=== PATIENT | female | born 1945 ===

== ENCOUNTER 2017-01-20 08:44 | Day surgery (SDC) | payer MEDICARE, MEDICAID ==
[2017-01-20 10:20] VITALS: BMI 28.9
[2017-01-20] MEDS ORDERED: Lactated Ringer's 500 ML IV SCH (10:45)
[2017-01-20] MEDS ORDERED: Lactated Ringer's 500 ML IV ONE ×2 (10:53)
--- NOTE | 2017-01-20 10:53 | CP.SDSHP ---
Same Day Surgery H & P - History Proposed Procedure: COLONSCOPY Pre-Op Diagnosis: SEE NOTES - Previous Medical/Surgical History Cardiac: Hypertension, ASHD/CAD Misc: Other Pain: 2.Mild Pain - Allergies Allergies: Allergies No Known Allergies Allergy (Verified 01/20/17 10:20) - Physical Exam General Appearance: N Vital Signs: Vital Signs 01/20/17 10:35 Temperature 98 F Pulse Rate 50 L Respiratory 18 Rate Blood Pressure 159/65 H O2 Sat by Pulse 98 Oximetry Mental Status: Alert & Oriented x3 Neuro: WNL Heart: Other Lungs: WNL GI: WNL - {Optional Preform as Required} Breast: WNL Abdomen: Other Rectal: WNL Integument: WNL : WNL Ortho: WNL ENT: WNL - Impression Pt. Evaluated Today:Candidate for Anesthesia & Procedure: Yes - Date & Time Time: 10:52 Short Stay Discharge - Short Stay Discharge Admitting Diagnosis/Reason for Visit: SCREENING / CHANGE IN BOWEL HABIT Disposition: HOME/ ROUTINE
[2017-01-20] MEDS ORDERED: Belladonna-Phenobarbital PO STA (10:54)
[2017-01-20] MEDS ORDERED: Propofol 10 mg/ml Inj (20 ML) ONE (10:54)
[2017-01-20 13:20] VITALS: TEMP 98
[2017-01-20 13:23] VITALS: PULSE 53; RESP 14
[2017-01-20 13:26] VITALS: BP 119/65; O2SAT 99
== END 2017-01-20 12:05 | disposition home or self-care (01) ==
LOC: C.ENDO 08:44
PROVIDERS: ATTEND Specialist
DX: K52.9 Noninfective gastroenteritis and colitis, unspecified (principal); K57.30 Diverticulosis of large intestine without perforation or abscess without bleeding; K64.8 Other hemorrhoids
CPT/HCPCS: 45380; 88305; J2704; J7120

== ENCOUNTER 2017-04-07 06:56 | Day surgery (SDC) | payer MEDICARE, OTHER ==
[2017-04-07 07:22] VITALS: BMI 27.4
[2017-04-07 07:24] VITALS: O2SAT 100
[2017-04-07] MEDS ORDERED: Propofol 10 mg/ml Inj (20 ML) ONE (08:40)
--- NOTE | 2017-04-07 08:42 | CP.SDSHP ---
Same Day Surgery H & P - History Proposed Procedure: COLONSCOPY Pre-Op Diagnosis: SEE NOTES - Previous Medical/Surgical History Cardiac: Hypertension, ASHD/CAD Misc: Other Pain: 4.Moderate Pain - Allergies Allergies: Allergies No Known Allergies Allergy (Verified 04/07/17 07:22) - Physical Exam General Appearance: N Vital Signs: Vital Signs 04/07/17 04/07/17 07:23 07:37 Temperature 97.8 F 97.8 F Pulse Rate 62 62 Respiratory 19 19 Rate Blood Pressure 145/68 145/68 O2 Sat by Pulse 100 100 Oximetry Mental Status: Alert & Oriented x3 Neuro: WNL Heart: Other Lungs: WNL GI: WNL - {Optional Preform as Required} Breast: WNL Abdomen: Other Rectal: Other Integument: WNL : WNL Ortho: Other ENT: WNL - Impression Pt. Evaluated Today:Candidate for Anesthesia & Procedure: Yes - Date & Time Time: 08:42 Short Stay Discharge - Short Stay Discharge Admitting Diagnosis/Reason for Visit: CHANGE IN BOWEL HABIT Disposition: HOME/ ROUTINE
[2017-04-07] MEDS ORDERED: Lactated Ringer's 500 ML IV ONE ×2 (08:43)
[2017-04-07 09:06] VITALS: TEMP 96.8
[2017-04-07] MEDS ORDERED: Belladonna-Phenobarbital PO ONE (09:15)
[2017-04-07 09:43] VITALS: PULSE 53; RESP 12
[2017-04-07 09:47] VITALS: BP 140/64
== END 2017-04-07 10:47 | disposition home or self-care (01) ==
LOC: C.ENDO 06:56
PROVIDERS: ATTEND Specialist
DX: K63.89 Other specified diseases of intestine (principal); K58.9 Irritable bowel syndrome, unspecified; K64.8 Other hemorrhoids; R19.4 Change in bowel habit
CPT/HCPCS: 45380; 88305; J2704; J7120

== ENCOUNTER 2018-12-08 17:55 | Observation (INO) | payer MEDICARE, OTHER ==
[2018-12-08 17:56] VITALS: BMI 27.4
[2018-12-08] MEDS ORDERED: Sodium Chloride 0.9% 1,000 ML IV ONE (18:43)
[2018-12-08] MEDS ORDERED: Sodium Chloride 0.9% 1,000 ML ONE (19:03)
[2018-12-08 19:17] LABS: BASO # 0.1 K/uL (0.0-0.2); EOS # 0.1 K/uL (0.0-0.7); EOS % 1.2 % (0.0-4.0); HEMOGLOBIN 12.3 g/dL (11.0-16.0); LYMPH # 1.1 K/uL (1.0-4.3); LYMPH % 16.6 % (20.0-40.0); MEAN CELL VOLUME 84.9 fL (81.0-99.0); MEAN CORPUSCULAR HEMOGLOBIN 27.6 pg (27.0-31.0); MEAN CORPUSCULAR HGB CONC 32.4 g/dL (33.0-37.0); MEAN PLATELET VOLUME 9.6 fL (7.2-11.7); MONO # 0.4 K/uL (0.0-0.8); MONO % 6.6 % (0.0-10.0); NEUT % 74.6 % (50.0-75.0); RBC 4.46 Mil/uL (3.80-5.20); RED CELL DISTRIBUTION WIDTH 14.6 % (11.5-14.5); WHITE BLOOD COUNT 6.7 K/uL (4.8-10.8)
[2018-12-08 19:22] LABS: SQUAMOUS EPITHIAL < 1 /hpf (0-5); URINE BILIRUBIN NEGATIVE (NEGATIVE); URINE BLOOD NEGATIVE (NEGATIVE); URINE CLARITY Clear (Clear); URINE COLOR Yellow (YELLOW); URINE GLUCOSE (UA) NORMAL (Normal); URINE LEUKOCYTE ESTERASE NEG Leu/uL (Negative); URINE PROTEIN NEGATIVE (NEGATIVE); URINE UROBILINOGEN NORMAL mg/dL (0.2-1.0)
--- NOTE | 2018-12-08 19:23 | C.PDOC ---
History Of Present Illness 73 year old female present to ED with complaint of cough, congestion and body aches that started 2 weeks ago. Patient states that she went to see Dr Adams and was put on tamiflu and zithromax. Patient states that she developed dizzi ness, nausea, vomiting, and mild diarrhea soon after starting her medication. Patient states that she continues to have an upset stomach and has not been able to eat or drink. She states that she began to feel worse and 2-3 days after stopped her medication. She states that her fever and body aches are gone, but she still feels chest congestion, dry cough, dizziness, and lightheadedness. Patient denies abdominal pain, hematuria, bloody stools, and dysuria. Time Seen by Provider: 12/08/18 18:32 Chief Complaint (Nursing): Abdominal Pain History Per: Patient History/Exam Limitations: no limitations Onset/Duration Of Symptoms: Other (2-3 weeks) Current Symptoms Are (Timing): Still Present Associated Symptoms: Other (dry cough, lightheadedness, dizziness). denies: Fever, Urinary Symptoms Exacerbating Factors: None Alleviating Factors: None Past Medical History Reviewed: Historical Data, Nursing Documentation, Vital Signs Vital Signs: Last Vital Signs Temp 97.6 F 12/08/18 18:09 Pulse 118 H 12/08/18 18:09 Resp 20 12/08/18 18:09 BP 153/89 H 12/08/18 18:09 Pulse Ox 98 12/08/18 18:09 - Medical History PMH: Arthritis, Fractures (BOTH FEET), HTN Denies: Chronic Kidney Disease Surgical History: Endoscopy Family History: States: Unknown Family Hx - Social History Hx Alcohol Use: No Hx Substance Use: No - Immunization History Hx Tetanus Toxoid Vaccination: No Hx Influenza Vaccination: No Hx Pneumococcal Vaccination: No Review Of Systems Constitutional: Negative for: Fever, Malaise Cardiovascular: Positive for: Light Headedness, Other (chest congestion) Respiratory: Positive for: Cough. Negative for: Sputum Gastrointestinal: Positive for: Nausea, Vomiting, Diarrhea. Negative for: Hematochezia Genitourinary: Negative for: Dysuria, Hematuria Neurological: Positive for: Dizziness. Negative for: Weakness, Numbness Physical Exam - Physical Exam Appears: Non-toxic, No Acute Distress, Other (dehydrated) Skin: Normal Color, Warm, Dry Head: Atraumatic, Normacephalic Oral Mucosa: Dry Neck: Normal ROM, Supple Chest: Symmetrical, No Deformity Respiratory: Rales (mild, bilateral ), Rhonchi (mild,bilateral) Gastrointestinal/Abdominal: Soft, No Tenderness, No Guarding, No Rebound Extremity: Capillary Refill (<2 seconds) Pulses: Left Radial: Normal, Right Radial: Normal Neurological/Psych: Oriented x3, Normal Speech, Normal Cognition ED Course And Treatment - Laboratory Results Result Diagrams: 12/08/18 19:05 12/08/18 19:05 Lab Interpretation: No Acute Changes ECG: Interpreted By Me ECG Rhythm: Atrial Fibrillation (new onset with rapid ventricular response) ECG Interpretation: Abnormal O2 Sat by Pulse Oximetry: 98 (in RA) Pulse Ox Interpretation: Normal - Radiology CXR: Interpreted by Me CXR Interpretation: Yes: No Acute Disease Progress Note: Patient treated with IV fluids in ED. 8:20 States she is still feeling dizzy with palpitations but is hungry and is requesting something to eat. EKG ordered. Reevaluation Time: 20:15 - Physician Consult Information Time Consulting Physician Contacted: 21:38 Physician Contacted: Jd Adams Outcome Of Conversation: Patient to be admitted for cardiac evaluation Medical Decision Making Medical Decision Making: Impression: 73 year old female present to ED with complait of cough, congestion and body aches that started 2 weeks ago Plan: Labs ordered with CMP,CBC, and UA CXR ordered for patient Patient given IV fluids Disposition - Disposition Disposition: HOSPITALIZED Disposition Time: 21:38 Condition: FAIR - POA Present On Arrival: None - Clinical Impression Clinical Impression: New onset atrial fibrillation - Scribe Statement The provider has reviewed the documentation as recorded by the Scribe (Sarai Nunn) All medical record entries made by the Scribe were at my direction and personally dictated by me. I have reviewed the chart and agree that the record accurately reflects my personal performance of the history, physical exam, medical decision making, and the department course for this patient. I have also personally directed, reviewed, and agree with the discharge instructions and disposition.
[2018-12-08 19:47] LABS: ALB/GLOB RATIO 1.1 (1.0-2.1); ALBUMIN 4.2 g/dL (3.5-5.0); ALT/SGPT 29 U/L (9-52); AST/SGOT 54 U/L (14-36); BLOOD UREA NITROGEN 16 mg/dL (7-17); CALCIUM 9.3 mg/dl (8.6-10.4); GFR NON-AFRICAN AMERICAN > 60
[2018-12-08] MEDS ORDERED: Enoxaparin 30 mg Syringe ONE (22:13)
[2018-12-08] MEDS: Enoxaparin 60 mg Syringe SC SCH (22:16)
[2018-12-08 22:32] LABS: CK-MB 4.72 ng/mL (0.0-3.38)
[2018-12-09 06:39] LABS: CK-MB 3.04 ng/mL (0.0-3.38)
[2018-12-09] MEDS: Enoxaparin 60 mg Syringe SC SCH (09:26)
--- NOTE | 2018-12-09 09:37 | RAD ---
Date of service: 12/08/2018 HISTORY: Shortness of breath COMPARISON: No prior. TECHNIQUE: Chest PA and lateral FINDINGS: LINES AND TUBES: None. LUNG AND PLEURA: The lungs are hyperinflated and there is peribronchial thickening with chronic changes in both lungs. No pleural effusion or pneumothorax. HEART AND MEDIASTINUM: There is mild cardiomegaly. There are aortic atherosclerotic calcifications present. The hilar and mediastinal contours are within normal limits. SKELETAL STRUCTURES: The bony structures are within normal limits for the patient's age. VISUALIZED UPPER ABDOMEN: Normal. OTHER FINDINGS: None. IMPRESSION: No active pulmonary disease. COPD.
--- NOTE | 2018-12-09 10:42 | CP.PCM.PN ---
Subjective - Date & Time of Evaluation Date of Evaluation: 12/09/18 Time of Evaluation: 10:41 - Subjective Subjective: PGY3 progress note for Dr. Adams 73 year old female with past medical history of is admitted for dizziness 2/2 a fib. 2 weeks ago, patient developed flu like symptoms for which she was treated by her PMD, Dr. Adams with Tamiflu and zithromax. Patient developed dizziness, N/V and mild diarrhea after starting the medications. Patient then discontinued the medications but continued to feel worse which brought her to hospital. Clementine ent was noted to have new onset a fib in ED. Currently, pt states dizziness has improved. Denies having any SOB, abd pain, N/v/D/c, F/C, palpitaitons, CP. Objective - Vital Signs/Intake and Output Vital Signs (last 24 hours): Temp Pulse Resp BP Pulse Ox 97.4 F L 78 18 115/76 98 12/09/18 08:00 12/09/18 08:00 12/09/18 08:00 12/09/18 08:00 12/09/18 08:00 - Medications Medications: Current Medications Diltiazem HCl (Cardizem) 30 mg PO Q12 [facility] Last Admin: 12/09/18 09:26 Dose: 30 mg Enoxaparin Sodium (Lovenox) 60 mg SC Q12 [facility] Last Admin: 12/09/18 09:26 Dose: 60 mg - Labs Labs: 12/08/18 19:05 12/08/18 19:05 - Constitutional Appears: Non-toxic, No Acute Distress - Head Exam Head Exam: ATRAUMATIC, NORMOCEPHALIC - ENT Exam ENT Exam: Mucous Membranes Moist - Respiratory Exam Respiratory Exam: Clear to Ausculation Bilateral. absent: Rales, Rhonchi, Wheezes - Cardiovascular Exam Cardiovascular Exam: REGULAR RHYTHM, +S1, +S2 - GI/Abdominal Exam GI & Abdominal Exam: Soft, Normal Bowel Sounds. absent: Distended, Firm, Guarding, Rigid, Tenderness - Extremities Exam Extremities Exam: absent: Pedal Edema, Tenderness - Neurological Exam Neurological Exam: Alert, Awake, Oriented x3 - Psychiatric Exam Psychiatric exam: Normal Affect, Normal Mood - Skin Skin Exam: Dry, Intact, Normal Color, Warm Assessment and Plan - Assessment and Plan (Free Text) Assessment: 73 year old female is admitted for a fib. EKG done in ED showed A fib with HR of 108. A fib - CHADsVASc score of 3. Patient will require alf anticoagulation - Likely new onset - Patient started on Cardizem 30 mg po Q12 - Will check echo, ЕЛЕНА, TSH - pt on lovenox 70 mg sc q12 Chest congestion likely 2/2 bronchitis - afebrile on admission and normal WBC count - Will check procal, blood cultures and MRSA Prophylaxis - Lovenox - SCDs Case discussed with attending, Dr. Adams
--- NOTE | 2018-12-09 12:44 | CARD ---
APPROVED REPORT Date of service: 12/08/2018 EKG Measurement Heart [id number] <Conclusion> Atrial fibrillation with rapid ventricular response Abnormal ECG
--- NOTE | 2018-12-09 14:35 | CP.PCM.CON ---
History of Present Illness - History of Present Illness History of Present Illness: ASKED TO SEE PT BY DR GAY IN CARDIOLOGY COVERAGE. 73 YO FEMALE WITH 3 WEEKS OF PALPITATIONS, DIZZINESS AND QUIROZ. PT ADMITS TO PREVIOUS SYMPTOMS FOR YEARS. THESE OCCURRED INFREQUENTLY AND LASTED SEVERAL HOURS. THE PAST THREE WEEKS HER SYMPTOMS HAVE BEEN CONSTANT. DENIES CP, SYNCOPE, ORTHOPNEA, PND. DENIES PRIOR DIAGNOSIS OF HEART DISEASE. NO PRIOR HX OF FALLING OR RECENT BLEEDS. Review of Systems - Constitutional Constitutional: As Per HPI, Headache, Lethargy. absent: Anorexia, Chills, Daytime Sleepiness, Excessive Sweating, Fatigue, Fever, Frequent Falls, Increased Appetite, Malaise, Night Sweats, Snoring, Sleep Apnea, Weight Gain, Weight Loss, Weakness, Other - EENT Eyes: As Per HPI. absent: Blind Spots, Blurred Vision, Change in Vision, Decreased Night Vision, Diplopia, Discharge, Dry Eye, Exophthalmos, Floaters, Irritation, Itchy Eyes, Loss of Peripheral Vision, Pain, Photophobia, Requires Corrective Lenses, Sees Flashes, Spots in Vision, Tunnel Vision, Other Visual Disturbances, Loss of Vision, Other Ears: As Per HPI. absent: Decreased Hearing, Ear Discharge, Ear Pain, Tinnitus, Abnormal Hearing, Disequilibrium, Dizziness, Other Nose/Mouth/Throat: As Per HPI. absent: Epistaxis, Nasal Congestion, Nasal Discharge, Nasal Obstruction, Nasal Trauma, Nose Pain, Post Nasal Drip, Sinus Pain, Sinus Pressure, Bleeding Gums, Change in Voice, Dental Pain, Dry Mouth, Dysphagia, Halitosis, Hoarsness, Lip Swelling, Mouth Lesions, Mouth Pain, Odynop hagia, Sore Throat, Throat Swelling, Tongue Swelling, Facial Pain, Neck Pain, Neck Mass, Other - Breasts Breasts: As Per HPI. absent: Change in Shape, Mass, Pain, Nipple Discharge, Nipple Inversion, Skin Changes, Swelling, Other - Cardiovascular Cardiovascular: As Per HPI, Dyspnea, Irregular Heart Rhythm, Lightheadedness, Palpitations. absent: Acrocyanosis, Chest Pain, Chest Pain at Rest, Chest Pain with Activity, Claudication, Diaphoresis, Dyspnea on Exertion, Edema, Pain Radiating to Arm/Neck/Jaw, Leg Edema, Leg Ulcers, Orthopnea, Paroxysmal Nocturnal Dyspnea, Pedal Edema, Radiating Pain, Rapid Heart Rate, Slow Heart Rate, Syncope, Other - Respiratory Respiratory: As Per HPI. absent: Cough, Dyspnea, Hemoptysis, Dyspnea on Exertion, Wheezing, Snoring, Stridor, Pain on Inspiration, Chest Congestion, Excessive Mucous Production, Change in Mucous Color, Pain with Coughing, Other - Gastrointestinal Gastrointestinal: As Per HPI. absent: Abdominal Pain, Belching, Bloating, Change in Bowel Habits, Change in Stool Character, Coffee Ground Emesis, Constipation, Cramping, Diarrhea, Dyspepsia, Dysphagia, Early Satiety, Excessive Flatus, Fecal Incontinence, Heartburn, Hematemesis, Hematochezia, Loose Stools, Melena, Nausea, Odynophagia, Temesmus, Vomiting, Other - Genitourinary Genitourinary: As Per HPI. absent: Change in Urinary Stream, Difficulty Urinating, Dysuria, Flank Pain, Hematuria, Pyuria, Nocturia, Urinary Incontinence, Urinary Frequency, Urinary Hesitance, Urinary Urgency, Voiding Freq/Small Amts, Freq UTI, Hx Renal/Bladder Calculi, Hx /Renal Surgery, Bladder Distension, Other - Reproductive: Female Reproductive:Female: As Per HPI. absent: Amenorrhea, Amenorrhea/ Control, Currently Menstual, Cycle <21 Days, Cycle >35 Days, Cycle Variable, Menses 1-7 Days, Menses >/= 8 Days, Menses Variable, Cycle > 4 Weeks Between, No Menses for 6 Months, Heavy Menses, Light Menses, Normal Menses, Spotting Between Cycles, S/P Hysterectomy, Menopausal, Post Menopausal, Premenarche, Abnormal Vaginal Bleeding, Dysmenorrhea, Dyspareunia, Genital Lesions, Genital Pruritis, Pelvic Pain, Prolapse Symptoms, Sexual Dysfunction, Vaginal Discharge, Vaginal Dryness, Vaginal Odor, Vaginal Pruritis, Other - Menstruation Menstruation: As Per HPI. absent: Amenorrhea, Amenorrhea/ Control, Currently Menstual, Cycle <21 Days, Cycle >35 Days, Cycle Variable, Menses 1-7 Days, Menses >/= 8 Days, Menses Variable, Cycle > 4 Weeks Between, No Menses for 6 Months, Heavy Menses, Light Menses, Normal Menses, Spotting Between Cycles, S/P Hysterectomy, Menopausal, Post Menopausal, Premenarche, Abnormal Vaginal Bleeding, Dysmenorrhea, Other - Musculoskeletal Musculoskeletal: As Per HPI. absent: Abnormal Gait, Arthralgias, Atrophy, Back Pain, Deformity, Joint Swelling, Limited Range of Motion, Loss of Height, Muscle Cramps, Muscle Weakness, Myalgias, Neck Pain, Numbness, Radiating Pain into Limb, Stiffness, Tingling, Other - Integumentary Integumentary: As Per HPI. absent: Acne, Alopecia, Bleeding Lesions, Change in Hair, Change in Nails, Change in Pigmentation, Changing Lesions, Dry Skin, Erythema, Furuncle, Hirsutism, Lesions, New Lesions, Non-Healing Lesions, Photosensitivity, Pruritus, Rash, Skin Pain, Skin Ulcer, Sores, Striae, Swelling, Unusual Bruising, Wounds, Jaundice, Other - Neurological Neurological: As Per HPI. absent: Abnormal Gait, Abnormal Hearing, Abnormal M ovements, Abnormal Speech, Behavioral Changes, Burning Sensations, Confusion, Convulsions, Disequilibrium, Dizziness, Numbness, Focal Weakness, Frequent Falls, Headaches, Lack of Coordination, Loss of Vision, Memory Loss, Paresthesias, Radicular Pain, Restless Legs, Sensory Deficit, Syncope, Tingling, Tremor, Vertigo, Weakness, Other Visual Disturbances, Other - Psychiatric Psychiatric: As Per HPI. absent: Abnormal Sleep Pattern, Anhedonia, Anxiety, Auditory Hallucinations, Behavioral Changes, Change in Appetite, Change in Libido, Confusion, Depression, Difficulty Concentrating, Hallucinations, Homicidal Ideation, Hopelessness, Irritability, Memory Loss, Mood Swings, Panic Attacks, Paranoia, Suicidal Ideation, Visual Hallucinations, Tactile Hallucina tions, Other - Endocrine Endocrine: As Per HPI. absent: Change in Body Appearance, Change in Libido, Cold Intolorance, Deepening of Voice, Excessive Sweating, Fatigue, Flushing, Heat Intolorance, Increase in Ring/Shoe/Hat Size, Palpitations, Polydipsia, Polyphagia, Polyuria, Other - Hematologic/Lymphatic Hematologic: As Per HPI. absent: Easy Bleeding, Easy Bruising, Lymphadenopathy, Other Past Patient History - Past Medical History & Family History Past Medical History?: Yes - Past Social History Smoking Status: Never Smoked Chewing Tobacco Use: No Cigar Use: No Alcohol: Occasional Drugs: Denies Home Situation {Lives}: Alone Domestic Violence: Negative - CARDIAC Hx Cardiac Disorders: Yes Hx Hypertension: Yes - PULMONARY Hx Respiratory Disorders: No - NEUROLOGICAL Hx Neurological Disorder: Yes Hx Vertigo: Yes - HEENT Hx HEENT Problems: No - RENAL Hx Chronic Kidney Disease: No - ENDOCRINE/METABOLIC Hx Endocrine Disorders: No - HEMATOLOGICAL/ONCOLOGICAL Hx Blood Disorders: No Hx Blood Transfusions: No - INTEGUMENTARY Hx Dermatological Problems: No - MUSCULOSKELETAL/RHEUMATOLOGICAL Hx Arthritis: Yes Hx Falls: No Hx Fractures: Yes (BOTH FEET) - GASTROINTESTINAL Hx Gastrointestinal Disorders: No - GENITOURINARY/GYNECOLOGICAL Hx Genitourinary Disorders: No - PSYCHIATRIC Hx Substance Use: No - SURGICAL HISTORY Hx Surgeries: Yes Hx Hysterectomy: Yes Hx Orthopedic Surgery: Yes (BILATERAL BUNIONECTOMY) Hx Vascular Surgery: Yes (LEG VARICOSE VEIN STRIPPING) - ANESTHESIA Hx Anesthesia: Yes Hx Anesthesia Reactions: No Hx Malignant Hyperthermia: No Meds Home Medications: Home Medication List Medication Instructions Recorded Confirmed Type Apixaban [Eliquis] 5 mg PO BID #60 tablet 12/10/18 Rx Pantoprazole Sodium [Protonix] 40 mg PO DAILY #30 ect 12/10/18 Rx diltiaZEM [Cardizem] 30 mg PO Q12 30 Days #60 tab 12/10/18 Rx Allergies/Adverse Reactions: Allergies Allergy/AdvReac Type Severity Reaction Status Date / Time No Known Allergies Allergy Verified 04/07/17 07:22 - Medications Medications: Current Medications Diltiazem HCl (Cardizem) 30 mg PO Q12 [facility] Last Admin: 12/09/18 09:26 Dose: 30 mg Enoxaparin Sodium (Lovenox) 60 mg SC Q12 [facility] Last Admin: 12/09/18 09:26 Dose: 60 mg Physical Exam - Constitutional Appears: Non-toxic - Head Exam Head Exam: ATRAUMATIC, NORMAL INSPECTION, NORMOCEPHALIC - Eye Exam Eye Exam: EOMI, Normal appearance, PERRL. absent: Conjunctival injection, Nystagmus, Periorbital swelling, Periorbital tenderness, Scleral icterus Pupil Exam: NORMAL ACCOMODATION, PERRL. absent: Fixed, Irregular, Miosis, Mydri atic, Unequal - ENT Exam ENT Exam: Mucous Membranes Moist, Normal Exam. absent: Mucous Membranes Dry, Normal External Ear Exam, Normal Oropharynx, TM's Normal Bilaterally - Neck Exam Neck exam: Positive for: Normal Inspection. Negative for: Full Rom, Lymphadenopathy, Meningismus, Tenderness, Thyromegaly - Respiratory Exam Respiratory Exam: Clear to Auscultation Bilateral, NORMAL BREATHING PATTERN. absent: Accessory Muscle Use, Chest Wall Tenderness, Decreased Breath Sounds, P rolonged Expiratory Phase, Rales, Rhonchi, Wheezes, Respiratory Distress, Stridor - Cardiovascular Exam Cardiovascular Exam: Tachycardia, Irregular Rhythm, +S1, +S2, Systolic Murmur. absent: Bradycardia, Clicks, Diastolic murmur, Gallop, REGULAR RHYTHM, JVD, RRR, Rubs, +S4 - GI/Abdominal Exam GI & Abdominal Exam: Normal Bowel Sounds, Soft. absent: Bruit, Diminished Bowel Sounds, Distended, Firm, Guarding, Hernia, Hyperactive Bowel Sounds, Hypoactive Bowel Sounds, Mass, Organomegaly, Pulsatile Mass, Rebound, Rigid, Tenderness - Rectal Exam Rectal Exam: Deferred - Extremities Exam Extremities exam: Positive for: normal capillary refill, normal inspection, pedal pulses present. Negative for: calf tenderness, full ROM, joint swelling, pedal edema, tenderness - Back Exam Back exam: NORMAL INSPECTION. absent: CVA tenderness (L), CVA tenderness (R), FULL ROM, muscle spasm, paraspinal tenderness, rash noted, tenderness, vertebral tenderness - Neurological Exam Neurological exam: Alert, CN II-XII Intact, Normal Gait, Oriented x3, Reflexes Normal - Psychiatric Exam Psychiatric exam: Normal Affect, Normal Mood - Skin Skin Exam: Dry, Intact, Normal Color, Warm Results - Vital Signs Recent Vital Signs: Last Vital Signs Temp 97.7 F 12/09/18 12:00 Pulse 78 12/09/18 12:00 Resp 18 12/09/18 12:00 BP 109/58 L 12/09/18 12:00 Pulse Ox 97 12/09/18 12:00 - Labs Result Diagrams: 12/10/18 06:15 12/10/18 06:15 Labs: Laboratory Results - last 24 hr 12/08/18 12/08/18 12/08/18 19:05 19:05 19:05 WBC 6.7 RBC 4.46 Hgb 12.3 Hct 37.9 MCV 84.9 MCH 27.6 MCHC 32.4 L RDW 14.6 H Plt Count 215 MPV 9.6 Neut % (Auto) 74.6 Lymph % (Auto) 16.6 L [place] % (Auto) 6.6 Eos % (Auto) 1.2 Baso % (Auto) 1.0 Neut # (Auto) 5.0 Lymph # (Auto) 1.1 [place] # (Auto) 0.4 Eos # (Auto) 0.1 Baso # (Auto) 0.1 Sodium 134 Potassium 3.9 Chloride 101 Carbon Dioxide 23 Anion Gap 14 BUN 16 Creatinine 0.6 L Est GFR ( Amer) > 60 Est GFR (Non-Af Amer) > 60 Random Glucose 110 H Calcium 9.3 Total Bilirubin 0.9 AST 54 H ALT 29 Alkaline Phosphatase 103 Total Creatine Kinase CK-MB (Mass) Troponin I Total Protein 8.0 Albumin 4.2 Globulin 3.8 Albumin/Globulin Ratio 1.1 Urine Color Yellow Urine Clarity Clear Urine pH 6.0 Ur Specific [place] 1.010 Urine Protein Negative Urine Glucose (UA) Normal Urine Ketones Trace Urine Blood Negative Urine Nitrate Negative Urine Bilirubin Negative Urine Urobilinogen Normal Ur Leukocyte Esterase Neg Urine WBC (Auto) < 1 Urine RBC (Auto) < 1 Ur Squamous Epith Cells < 1 12/08/18 12/09/18 19:05 06:02 WBC RBC Hgb Hct MCV MCH MCHC RDW Plt Count MPV Neut % (Auto) Lymph % (Auto) [place] % (Auto) Eos % (Auto) Baso % (Auto) Neut # (Auto) Lymph # (Auto) [place] # (Auto) Eos # (Auto) Baso # (Auto) Sodium Potassium Chloride Carbon Dioxide Anion Gap BUN Creatinine Est GFR ( Amer) Est GFR (Non-Af Amer) Random Glucose Calcium Total Bilirubin AST ALT Alkaline Phosphatase Total Creatine Kinase 125 69 CK-MB (Mass) 4.72 H 3.04 Troponin I < 0.0120 < 0.0120 Total Protein Albumin Globulin Albumin/Globulin Ratio Urine Color Urine Clarity Urine pH Ur Specific [place] Urine Protein Urine Glucose (UA) Urine Ketones Urine Blood Urine Nitrate Urine Bilirubin Urine Urobilinogen Ur Leukocyte Esterase Urine WBC (Auto) Urine RBC (Auto) Ur Squamous Epith Cells Assessment & Plan (1) Afib Status: Acute (2) Biatrial enlargement Status: Acute (3) HTN (hypertension) Status: Acute (4) Mitral regurgitation Status: Acute (5) Tricuspid regurgitation Status: Acute - Assessment and Plan (Free Text) Plan: PT HAS HAD SYMPTOMS ON AND OFF FOR YEARS. SHE HAS HAD PALP FOR PAST 3 WEEKS WITH DIZZINESS AND SOB. HER ECHO SHOWS SEVERELY ENLARGED ATRIA. 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 . AFIB IS LIKELY LONG STANDING. IT IS UNLIKELY THE PT WOULD BENEFIT FROM CARDIOVERSION. WOULD RATE CONTROL AND ANTICOAGULATE. SHE SHOULD F/U OUTPT AND SEE EP PHYSICIAN FOR POSSIBLE ABLATION OR WATCHMAN PROCEDURE. I ORDERED MAG 2GM IV AND TFTS IN AM. CONT CARDIZEM AND ANTICOAG. 75 MIN TOTAL CARE TIME.
[2018-12-09 14:47] LABS: CK-MB 2.66 ng/mL (0.0-3.38)
[2018-12-09] MEDS: Magnesium Sulfate 1 gm in D5W 1 GM/100 ML BAG IVPB SCH ×2 (15:51→16:53)
--- NOTE | 2018-12-09 20:32 | CARD ---
APPROVED REPORT Date of service: 12/09/2018 EXAM: Two-dimensional and M-mode echocardiogram with Doppler and color Doppler. Other Information Quality : GoodRhythm : INDICATION Dizziness and Vertigo Atrial Fibrillation Chest Pain 2D DIMENSIONS IVSd1.1 (0.7-1.1cm)LVDd4.7 (3.9-5.9cm) PWd0.9 (0.7-1.1cm)LA Xkeose802 (18-58mL) LVDs3.5 (2.5-4.0cm)FS (%) 26.8 % LVEF (%)52.0 (>50%)LVEF ([place])50 % M-Mode DIMENSIONS Left Atrium (MM)5.35 (2.5-4.0cm)IVSd0.82 (0.7-1.1cm) Aortic Root3.85 (2.2-3.7cm)LVDd5.26 (4.0-5.6cm) Aortic Cusp Exc.2.39 (1.5-2.0cm)PWd0.64 (0.7-1.1cm) FS (%) 31 %LVDs3.64 (2.0-3.8cm) LVEF (%)54 (>50%) Mitral Valve MV E Swcwecox93.8cm/sE/A ratio0.2XVUD886.36 cm/s TDI Lateral E' Peak V12.00cm/sMedial E' Peak V7.71cm/sE/Lateral E'7.7 E/Medial E'12.0 Tricuspid Valve TR Peak Vrwhdjvz781dz/sTR Peak Gr.[id number] LEFT VENTRICLE The left ventricle is normal size. There is borderline concentric left ventricular hypertrophy. Left ventricle systolic function is normal. The Ejection Fraction is 55-60%. There is normal LV segmental wall motion. A Fib There is no ventricular septal defect visualized. RIGHT VENTRICLE The right ventricle is normal size. The right ventricular systolic function is normal. ATRIA The left atrium is moderately dilated. The right atrium is moderately dilated. AORTIC VALVE The aortic valve is mildly sclerotic. The aortic valve is tri-cuspid. No aortic regurgitation is present. There is no aortic valvular stenosis. MITRAL VALVE The mitral valve is normal in structure. There is no evidence of mitral valve prolapse. Mitral regurgitation is mild to moderate.ERO 0.3 cm2 TRICUSPID VALVE The tricuspid valve is normal in structure. There is mild tricuspid regurgitation. Right ventricular systolic pressure is estimated at 30-40 mmHg. There is mild pulmonary hypertension. PULMONIC VALVE The pulmonary valve is normal in structure. There is no pulmonic valvular regurgitation. GREAT VESSELS The aortic root is normal in size. The ascending aorta is normal in size. The IVC is dilated. PERICARDIAL EFFUSION There is no pericardial effusion. <Conclusion> Left ventricle systolic function is normal. The Ejection Fraction is 55-60%. Mitral regurgitation is mild to moderate.ERO 0.3 cm2 There is mild pulmonary hypertension.
[2018-12-09] MEDS: Enoxaparin 80 mg Syringe SC SCH (21:37)
[2018-12-10 05:32] VITALS: O2SAT 96
[2018-12-10 06:24] LABS: BASO % 1.1 % (0.0-2.0); EOS # 0.1 K/uL (0.0-0.7); EOS % 3.2 % (0.0-4.0); HEMOGLOBIN 11.1 g/dL (11.0-16.0); LYMPH # 1.2 K/uL (1.0-4.3); LYMPH % 27.7 % (20.0-40.0); MEAN CORPUSCULAR HEMOGLOBIN 28.5 pg (27.0-31.0); MEAN CORPUSCULAR HGB CONC 33.1 g/dL (33.0-37.0); MEAN PLATELET VOLUME 9.8 fL (7.2-11.7); MONO # 0.4 K/uL (0.0-0.8); MONO % 10.4 % (0.0-10.0); NEUT # 2.4 K/uL (1.8-7.0); NEUT % 57.6 % (50.0-75.0); NRBC % 0.1 % (0.0-2.0); RBC 3.91 Mil/uL (3.80-5.20); RED CELL DISTRIBUTION WIDTH 14.7 % (11.5-14.5); WHITE BLOOD COUNT 4.2 K/uL (4.8-10.8)
--- NOTE | 2018-12-10 06:26 | HP ---
HISTORY OF PRESENT ILLNESS: A 73-year-old female admitted to the hospital with chief complaints of progressive weakness, fatigue, shortness of breath who came to the ER. The patient had a viral infection and is using Tamiflu. The patient was found to a have atrial fibrillation in the ER. PHYSICAL EXAMINATION: GENERAL: The patient is awake, alert, oriented. VITAL SIGNS: Temperature 98, pulse 90 and regular, blood pressure 110/70. HEENT: Within normal limits. NECK: Supple. CHEST: Symmetrical. HEART: Regular. ABDOMEN: Soft. EXTREMITIES: No edema. ASSESSMENT AND PLAN: The patient suffers from new-onset atrial fibrillation. The patient is to get bed rest. Anticoagulation. Echocardiogram. Jd Adams MD
[2018-12-10 07:11] LABS: ALB/GLOB RATIO 1.1 (1.0-2.1); ALBUMIN 3.4 g/dL (3.5-5.0); ALT/SGPT 26 U/L (9-52); AST/SGOT 38 U/L (14-36); BLOOD UREA NITROGEN 17 mg/dL (7-17); CALCIUM 8.6 mg/dl (8.6-10.4); GFR NON-AFRICAN AMERICAN > 60
--- NOTE | 2018-12-10 09:49 | CP.PCM.PN ---
Subjective - Date & Time of Evaluation Date of Evaluation: 12/10/18 Time of Evaluation: 09:48 - Subjective Subjective: PGY-[address] dAams's service Pt seen and examined at bedside. Nursing reports no acute events overnight. Patient states her heart rate "feels more controlled" and denies palpitations, chest pain, or dyspnea. Long conversation with patient regarding bleeding history - admits history of nose bleed "8 yrs ago" and internal hemorrhoids but denies liver disease, renal disease, alcohol abuse, history of stroke, or major episodes of bleeding. Objective - Vital Signs/Intake and Output Vital Signs (last 24 hours): Temp Pulse Resp BP Pulse Ox 98.7 F 89 18 102/69 96 12/10/18 08:00 12/10/18 04:00 12/10/18 04:00 12/10/18 04:00 12/10/18 04:00 Intake and Output: 12/10/18 12/10/18 06:59 18:59 Intake Total 350 Balance 350 - Medications Medications: Current Medications Diltiazem HCl (Cardizem) 30 mg PO Q12 [facility] Last Admin: 12/09/18 21:37 Dose: 30 mg Enoxaparin Sodium (Lovenox) 70 mg SC Q12 [facility] Last Admin: 12/09/18 21:37 Dose: 70 mg - Labs Labs: 12/10/18 06:15 12/10/18 06:15 - Constitutional Appears: Non-toxic, No Acute Distress - Head Exam Head Exam: ATRAUMATIC, NORMAL INSPECTION - Eye Exam Eye Exam: EOMI. absent: Scleral icterus Pupil Exam: PERRL - ENT Exam ENT Exam: Mucous Membranes Moist - Respiratory Exam Respiratory Exam: Clear to Ausculation Bilateral, NORMAL BREATHING PATTERN. absent: Decreased Breath Sounds, Rales - Cardiovascular Exam Cardiovascular Exam: REGULAR RHYTHM, +S1, +S2 - GI/Abdominal Exam GI & Abdominal Exam: Soft, Normal Bowel Sounds. absent: Tenderness - Rectal Exam Rectal Exam: Hemorrhoids Additional comments: No rectal bleeding - Extremities Exam Extremities Exam: Normal Inspection. absent: Pedal Edema - Back Exam Back Exam: absent: CVA tenderness (L), CVA tenderness (R) - Neurological Exam Neurological Exam: Alert, Awake, Oriented x3 - Psychiatric Exam Psychiatric exam: Normal Affect, Normal Mood - Skin Skin Exam: Normal Color, Warm Assessment and Plan - Assessment and Plan (Free Text) Plan: 73 year old female is admitted for a fib. EKG done in ED showed A fib with HR of 108. A fib - CHADsVASc score of 3. Patient will require mcc anticoagulation - HASBLED: 2 (current plavix, age > 65) - Patient started on Cardizem 30 mg po Q12 (now rate controlled) Echo (12/10/18): EF 55-60%; Mild to moderate MR; no pulm HTN ЕЛЕНА negative x 3 TSH 3.96; T4 1.15 Dr. Watson, Cardio consult - help appreciated - likely long standing afib - recommend rate control and anticoagulation - f/u w/ EP as outpatient for ABLATION or WATCHMAN PROCEDURE. Lovenox 70 mg sc q12 Chest congestion likely 2/2 bronchitis afebrile on admission and normal WBC count procal negative (<0.05) blood cultures (12/09/18): No GTD x 2 MRSA screen pending Prophylaxis - Lovenox - SCDs - Protonix 40mg PO daily Disposition: Patient will be discharged on Eliquis with instructions to follow up with Dr. Adams w/in one week, and EP case consultant. Case discussed with attending, Dr. Adams
[2018-12-10] MEDS: Enoxaparin 80 mg Syringe SC SCH (10:17)
[2018-12-10 12:03] LABS: INR 1.2; PROTHROMBIN TIME 12.7 SECONDS (9.7-12.2)
[2018-12-10 12:14] VITALS: BP 115/65; PULSE 93; RESP 16
[2018-12-10 17:34] VITALS: TEMP 98.3
[2018-12-10] MEDS ORDERED: Potassium Chloride 20 mEq/15 ml LIQ UD PO ONE (17:35)
--- NOTE | 2018-12-10 17:39 | CP.PCM.PN ---
Subjective - Date & Time of Evaluation Date of Evaluation: 12/10/18 Time of Evaluation: 17:37 - Subjective Subjective: pt without complaints of palp, dizziness lh or cp. no sob. hr 90-110 at rest. bp stable. Objective - Vital Signs/Intake and Output Vital Signs (last 24 hours): Temp Pulse Resp BP Pulse Ox 98.3 F 93 H 16 115/65 96 12/10/18 16:00 12/10/18 12:00 12/10/18 12:00 12/10/18 12:00 12/10/18 12:00 Intake and Output: 12/10/18 12/10/18 06:59 18:59 Intake Total 350 Balance 350 - Medications Medications: Current Medications Apixaban (Eliquis) 5 mg PO BID DAVID Diltiazem HCl (Cardizem Cd) 120 mg PO DAILY DAVID - Labs Labs: 12/10/18 06:15 12/10/18 06:15 PT 12.7 SECONDS (9.7-12.2) H 12/10/18 11:51 INR 1.2 12/10/18 11:51 APTT 54 SECONDS (21-34) H 12/10/18 11:51 - Constitutional Appears: Well - Head Exam Head Exam: ATRAUMATIC, NORMAL INSPECTION, NORMOCEPHALIC - Eye Exam Eye Exam: EOMI, Normal appearance, PERRL. absent: Conjunctival injection, Nystagmus, Periorbital swelling, Periorbital tenderness, Scleral icterus Pupil Exam: NORMAL ACCOMODATION, PERRL - ENT Exam ENT Exam: Mucous Membranes Moist, Normal Exam. absent: Mucous Membranes Dry, Normal External Ear Exam, Normal Oropharynx, TM's Normal Bilaterally - Neck Exam Neck Exam: Full ROM, Normal Inspection. absent: Lymphadenopathy, Meningismus, Tenderness, Thyromegaly - Respiratory Exam Respiratory Exam: Clear to Ausculation Bilateral, NORMAL BREATHING PATTERN. absent: Accessory Muscle Use, Chest Wall Tenderness, Decreased Breath Sounds, Prolonged Expiratory Phase, Rales, Rhonchi, Wheezes, Respiratory Distress, Stridor - Cardiovascular Exam Cardiovascular Exam: Irregular Rhythm, +S1, +S2, Murmur. absent: Bradycardia, Tachycardia, Clicks, Diastolic murmur, Gallop, REGULAR RHYTHM, JVD, RRR, Rubs, +S4 - GI/Abdominal Exam GI & Abdominal Exam: Soft, Normal Bowel Sounds. absent: Bruit, Distended, Firm, Guarding, Rigid, Tenderness, Diminished Bowel Sounds, Hernia, Hyperactive Bowel Sounds, Hypoactive Bowel Sounds, Organomegaly, Pulsatile Mass, Rebound, Mass - Rectal Exam Rectal Exam: Deferred - Extremities Exam Extremities Exam: Full ROM, Normal Capillary Refill, Normal Inspection. absent: Calf Tenderness, Joint Swelling, Pedal Edema, Tenderness - Back Exam Back Exam: NORMAL INSPECTION. absent: CVA tenderness (L), CVA tenderness (R), Full ROM, muscle spasm, paraspinal tenderness, rash noted, tenderness, vertebral tenderness - Neurological Exam Neurological Exam: Alert, Awake, CN II-XII Intact, Normal Gait, Oriented x3. absent: Abnormal Gait, Altered, Motor Sensory Deficit, Reflexes Normal - Psychiatric Exam Psychiatric exam: Normal Affect, Normal Mood. absent: Agitated, Anxious, Depressed, Flat Affect, Homicidal Ideation, Manic, Suicidal Ideation - Skin Skin Exam: Dry, Intact, Normal Color, Warm. absent: Abrasion, Cyanosis, Diaphoretic, Erythema, Mottled, Pallor, Pallor, Petechiae, Rash, Urticaria, Vesicles Assessment and Plan (1) Afib Status: Acute (2) Biatrial enlargement Status: Acute (3) HTN (hypertension) Status: Acute (4) Mitral regurgitation Status: Acute (5) Tricuspid regurgitation Status: Acute - Assessment and Plan (Free Text) Plan: WILL CHANGE CARDIZEM TO 120 CD DAILY AND START ELIQUIS. KCL 40 MEQ GIVEN X 1. PT MAY FU WITH DR GAY AND BE EVALUATED FOR AFIB ABLATION. 45 MIN TOTAL CARE TIME.
[2018-12-10] MEDS ORDERED: diltiaZEM 120 mg/24 Hours CD Cap PO SCH (17:45)
== END 2018-12-10 18:16 | disposition home or self-care (01) ==
LOC: C.ER 17:55 → C.9E 22:18 → C.6T 22:43 → C.9I 12-09 00:47
PROVIDERS: ADMIT Internal Medicine Pulmonary Disease; ATTEND Internal Medicine Pulmonary Disease
DX: I48.91 Unspecified atrial fibrillation (principal); I10 Essential (primary) hypertension; I08.1 Rheumatic disorders of both mitral and tricuspid valves; Z79.01 Long term (current) use of anticoagulants; Z79.899 Other long term (current) drug therapy; Z90.710 Acquired absence of both cervix and uterus
CPT/HCPCS: 71046; 80053; 81001; 83735; 84100; 84145; 84439; 84443; 84484; 85025; 85610; 85730; 87040; 87081; 93005; 93306; 96365; 96366; 96372; 99285; G0378; J1650; J3475; J7030